=== PATIENT | female | born 1970 | race Caucasian/White ===

== ENCOUNTER 2020-11-21 21:22 | Emergency (ER) | payer OTHER ==
[~2020-11-21] VITALS: Ht 165.1 cm; Wt 59.0 kg
--- NOTE | 2020-11-21 21:34 | NUR ---
BIBA. PT C/O OF BLEEDING AFTER HAVING TEETH PULL TODAY. BEGAN BLEEDING A LOT MORE AT 2014. BLEEDING NOT CONTROLLED. PT STILL CURRENTLY BLEEDING. 50ML NOTED FROM REMSA REMSA GAVE 1G TXA MOTHER TESTER. PT TAKING NORCO, CINDAMYCIN, IBUPROFEN ATTACHED TO CARD/ SP02/BP MONITORS. VSS. PT SATES FEELING DIZZY, AT BEDSIDE
[2020-11-21] MEDS ORDERED: TRANEXAMIC ACID 100 MG/ML, 10ML ONE ×2 (21:41→21:57)
[2020-11-21] MEDS ORDERED: SODIUM CHLORIDE FLUSH 10ML SYR IVF ONE (22:00)
[2020-11-21] MEDS ORDERED: SODIUM CHLORIDE 0.9% 1,000ML IVBOLUS ONE (22:00)
[2020-11-21] MEDS ORDERED: TRANEXAMIC ACID 100 MG/ML, 10ML TP ONE ×2 (22:00→22:30)
[2020-11-21 22:06] LABS: BASOPHILS % (AUTO) 0 % (0-1); EOSINOPHILS % (AUTO) 1 % (1-7); LYMPHOCYTES % (AUTO) 25 % (22-44); MEAN CORPUSCULAR HEMOGLOBIN 30.1 pg (27.0-34.8); MEAN CORPUSCULAR HGB CONC 34.3 g/dL (32.4-35.8); MONOCYTES % (AUTO) 5 % (2-9); NEUTROPHILS % (AUTO) 69 % (42-75); PLATELET COUNT 295 x10^3/uL (130-400); RED BLOOD COUNT 4.26 x10^6/uL (3.82-5.3); RED CELL DISTRIBUTION WIDTH 12.5 % (9.6-15.2)
[2020-11-21 22:17] LABS: ALANINE AMINOTRANSFERASE 21 U/L (12-78); ALBUMIN 3.7 g/dL (3.4-5.0); ANION GAP 6 mmol/L (5-15); CHLORIDE 107 mmol/L (98-107); CREATININE 0.74 mg/dL (0.55-1.02)
[2020-11-21 22:19] LABS: ALKALINE PHOSPHATASE 60 U/L (45-117); BILIRUBIN,TOTAL 0.9 mg/dL (0.2-1.0); TOTAL PROTEIN 7.9 g/dL (6.4-8.2)
--- NOTE | 2020-11-21 22:42 | NUR ---
PT RESTING IN BED. BLEEDING HAS STOPPED. PT STATES SHE IS FEELING BETTER. ATTACHED TO ALL MONITORS. VSS. FLUIDS RUNNING. SUCTION AND GAUZE AT BEDSIDE. CALL LIGHT WITHIN REACH. PT AND INSTRUCTED TO CALL IF BLEEDING RESUMES. BED IN LOW POSITION. RAILS ENGAGED. NADN. LUCIO
[2020-11-21 23:20] LABS: INTERNATIONAL NORMALIZED RATIO 1.06 (0.93-1.1); PROTHROMBIN TIME 11.3 Seconds (9.6-11.5)
[2020-11-21 23:35] VITALS: BP 101/57
== END 2020-11-21 23:43 | disposition home or self-care (01) ==
LOC: ED 23:39
DX: K91.840 Postprocedural hemorrhage of a digestive system organ or structure following a digestive system procedure (principal); R55 Syncope and collapse; R94.31 Abnormal electrocardiogram [ECG] [EKG]
CPT/HCPCS: 36415; 80053; 85025; 85610; 85730; 93005; 96360; 99284; J7030